=== PATIENT | female | born 1935 ===

== ENCOUNTER 2018-04-28 02:16 | Emergency (ER) | payer MEDICARE ==
[2018-04-28 02:17] VITALS: BMI 29.7
[2018-04-28 02:23] VITALS: O2SAT 98
[2018-04-28] MEDS ORDERED: Phenylephrine 1% Nasal Spray (15 ml) ONE (02:41)
--- NOTE | 2018-04-28 03:07 | C.PDOC ---
History Of Present Illness 82 year old female presents to the ED for evaluation after she sustained a fall prior to arrival. Patient states she fell and injured the right side of her head and subsequently developed a nose bleed. Patient denies LOC, nausea, vomiting. Chief Complaint (Nursing): ENT Problem History Per: Patient History/Exam Limitations: None Onset/Duration Of Symptoms: Hrs Current Symptoms Are (Timing): Still Present Past Medical History Reviewed: Historical Data, Nursing Documentation, Vital Signs Vital Signs: Last Vital Signs Temp 98.6 F 04/28/18 02:23 Pulse 95 H 04/28/18 02:23 Resp 20 04/28/18 02:23 BP 126/78 04/28/18 02:23 Pulse Ox 98 04/28/18 05:32 - Medical History PMH: Anemia, Arthritis (right leg), Bronchitis, CAD, CHF, COPD, Diabetes, Gastrointestinal Ulcer, HTN, Hypercholesterolemia, Hypothyroidism, Pneumonia Denies: Alzheimer's Disease, Anxiety, Asthma, Bipolar Disorder, Cardia Arrhythmia, Crohn's Disease, Dementia, Depression, Diverticulitis, Emphysema, Fibromyalgia, Fractures, Gall Bladder Disease, HIV, Hyperthyroidism, Kidney Stones, Migraine, Mitral Valve Prolapse, Osteoporosis, Pancreatitis, Paranoia, Parkinson's Disease, Peripheral Edema, Post Traumatic Stress Disorder, Chronic Kidney Disease, Schizophrenia, Seizures, Sickle Cell Disease, Sexually Transmitted Disease, Sleep Apnea, TIA Surgical History: Appendectomy, Coronary Stent Denies: Cholecystectomy, Pacemaker - [facility] Procedures ABD WALL GEOFF REPAIR NEC (04/07/15) ASSISTANCE WITH RESPIRATORY VENTILATION, 24-96 HRS, CPAP (08/19/15) BATHING/SHOWERING TECHNIQUES TREATMENT (08/24/15) CLOSED ENDOSCOPIC BIOPSY OF LARGE INTESTINE (03/31/00) COLONOSCOPY (03/29/15) CONTINUOUS INVASIVE MECHANICAL VENTILATION <96 CONSEC HRS (02/10/15) CORONAR ARTERIOGR-2 CATH (01/19/15) CORONARY ARTERY STENT INSERTION [id number] (01/19/15) DRAINAGE OF PERITONEAL CAVITY, PERCUTANEOUS APPROACH, DIAGN (04/09/18) DRAINAGE OF R PLEURAL CAV WITH DRAIN DEV, PERC APPROACH (08/19/15) ENDOSCOPIC CONTROL OF GASTRIC OR DUODENAL BLEEDING (01/30/15) FLUOROSCOPY OF LEFT HEART USING LOW OSMOLAR CONTRAST (03/29/18) FLUOROSCOPY OF MULT COR ART USING L OSM CONTRAST (03/29/18) GAIT TRAINING/FUNCTIONAL AMBULATION TREATMENT (08/24/15) INJECT/INFUSE NEC (06/28/14) INSERT ENDOTRACHEAL TUBE (02/10/15) INSERTION OF ONE VASCULAR STENT (01/19/15) INTRODUCE OF OTH THERAP SUBST INTO RESP TRACT, VIA OPENING (02/19/16) LEFT HEART CARDIAC CATH (01/19/15) LT HEART ANGIOCARDIOGRAM (01/19/15) MANUAL THERAPY TECHNIQUES TREATMENT OF MUSCULOSK WHOLE (08/24/15) MEASURE OF CARDIAC SAMPL & PRESSURE, L HEART, PERC APPROACH (03/29/18) NEBULIZER THERAPY (05/28/15) OCCUPATIONAL THERAPY (04/14/15) OPEN AND OTHER RIGHT HEMICOLECTOMY (04/07/15) OTH LYSIS-PERITONEAL ADHES (04/07/15) OTHER LOCAL DESTRUC SKIN (11/23/98) PACKED CELL TRANSFUSION (06/11/15) PERCUTAN NEEDLE BX OF LIVER (04/07/15) PERCUTANEOUS TRANSLUMINAL CORONARY ANGIOPLASTY [PTCA] (01/19/15) PHYSICAL THERAPY NEC (04/14/15) PROCEDURE ON SINGLE VESSEL (01/19/15) [id number] BOWEL NEC (04/07/15) THERAPEUTIC EXERCISE TREATMENT OF MUSCULOSK WHOLE (08/24/15) THERAPEUTIC PLATELETPHERESIS (02/19/15) TRANSFUSE NONAUT RED BLOOD CELLS IN PERIPH VEIN, PERC (03/29/18) VACCINATION NEC (01/30/15) Family History: States: Unknown Family Hx - Social History Hx Alcohol Use: No Hx Substance Use: No - Immunization History Hx Tetanus Toxoid Vaccination: No Hx Influenza Vaccination: Yes Hx Pneumococcal Vaccination: Yes Review Of Systems ENT: Positive for: Other (nose bleed ) Gastrointestinal: Negative for: Nausea, Vomiting Neurological: Negative for: Other (LOC ) Physical Exam - Physical Exam Appears: Non-toxic, No Acute Distress Skin: Normal Color, Warm, Dry Head: Other (hematoma to right occipital-parietal area ) Eye(s): bilateral: Normal Inspection, PERRL, EOMI Ear(s): Bilateral: Normal Nose: Other (bleeding from left nostril, rapid rhino inserted in left nostril ) Neck: Supple Chest: Symmetrical, No Deformity, No Tenderness Cardiovascular: Rhythm Regular Respiratory: Normal Breath Sounds Extremity: Normal ROM, Capillary Refill (less than 2 seconds ) Neurological/Psych: Oriented x3, Normal Speech, Normal Cognition ED Course And Treatment - Laboratory Results Result Diagrams: 04/28/18 03:41 04/28/18 03:41 O2 Sat by Pulse Oximetry: 98 (on RA) Pulse Ox Interpretation: Normal Progress Note: Bloodwork and CT Head ordered and reviewed. Disposition Counseled Patient/Family Regarding: Diagnosis - Disposition Referrals: Ronald Brandon MD [Staff Provider] - Disposition: OTHER INSTITUTION Disposition Time: 05:24 Condition: STABLE Additional Instructions: ff up with ENT- Instructions: Nosebleeds, Closed Head Injury (DC), Minor Head Injury (DC) Forms: [employer] (Hebrew) - POA Present On Arrival: None - Clinical Impression Clinical Impression: Nasal bleeding, Head injury, Hematoma of parietal scalp - Scribe Statement The provider has reviewed the documentation as recorded by the Scribe (Chrissy Cummins) Provider Attestation: All medical record entries made by the Scribe were at my direction and personally dictated by me. I have reviewed the chart and agree that the record accurately reflects my personal performance of the history, physical exam, medical decision making, and the department course for this patient. I have also personally directed, reviewed, and agree with the discharge instructions and disposition.
[2018-04-28 03:47] LABS: BASO # 0.2 K/uL (0.0-0.2); BASO % 1.5 % (0.0-2.0); EOS # 0.4 K/uL (0.0-0.7); EOS % 3.2 % (0.0-4.0); HEMOGLOBIN 12.6 g/dL (11.0-16.0); LYMPH % 26.2 % (20.0-40.0); MEAN CELL VOLUME 95.8 fL (81.0-99.0); MEAN CORPUSCULAR HEMOGLOBIN 32.2 pg (27.0-31.0); MEAN CORPUSCULAR HGB CONC 33.6 g/dL (33.0-37.0); MEAN PLATELET VOLUME 8.9 fL (7.2-11.7); MONO # 1.2 K/uL (0.0-0.8); MONO % 10.5 % (0.0-10.0); NEUT # 6.7 K/uL (1.8-7.0); NEUT % 58.6 % (50.0-75.0); RBC 3.9 Mil/uL (3.80-5.20); RED CELL DISTRIBUTION WIDTH 15.8 % (11.5-14.5); WHITE BLOOD COUNT 11.5 K/uL (4.8-10.8)
[2018-04-28 03:53] LABS: INR 1.2; PROTHROMBIN TIME 12.9 SECONDS (9.7-12.2)
[2018-04-28 03:57] LABS: CALCIUM 9.1 mg/dl (8.6-10.4)
[2018-04-28 04:02] LABS: ALB/GLOB RATIO 1.4 (1.0-2.1)
[2018-04-28 06:10] VITALS: BP 118/78; PULSE 80; RESP 14; TEMP 97.5
--- NOTE | 2018-04-28 15:45 | CT ---
Date of service: 04/28/2018 PROCEDURE: CT HEAD WITHOUT CONTRAST. HISTORY: hematoma on the right side of the head. bed 7 COMPARISON: None available. TECHNIQUE: Axial computed tomography images were obtained through the head/brain without intravenous contrast. Radiation dose: Total exam DLP = 795.47 mGy-cm. This CT exam was performed using one or more of the following dose reduction techniques: Automated exposure control, adjustment of the mA and/or kV according to patient size, and/or use of iterative reconstruction technique. FINDINGS: HEMORRHAGE: No intracranial hemorrhage. BRAIN: The juares-white matter differentiation is well preserved. There is no mass effect or definitive edema pattern appreciated including the cortex. There is proportional expansion of the ventriculosulcal and cisternal spaces however in a pattern most compatible with diffuse cerebral atrophy. No suspicious extra-axial fluid collection is identified in the midline brain anatomy appears grossly nonfocal as imaged. VENTRICLES: Unremarkable. No hydrocephalus. CALVARIUM: No destructive bony lesion or displaced fracture identified including through the skullbase. PARANASAL SINUSES: Unremarkable as visualized. No significant inflammatory changes. MASTOID AIR CELLS: Unremarkable as visualized. No inflammatory changes. OTHER FINDINGS: None. IMPRESSION: Age related neuro degenerative findings appear age-appropriate. No definite acute intracranial findings by standard CT criteria. No displaced fracture identified. Follow-up CT or MRI are available if clinically warranted. Concordant preliminary report from [facility], 04/28/2018.
== END 2018-04-28 06:10 | disposition designated cancer center or children's hospital (05) ==
LOC: C.ER 02:16
DX: S00.03XA Contusion of scalp, initial encounter (principal); W18.30XA Fall on same level, unspecified, initial encounter; Y92.013 Bedroom of single-family (private) house as the place of occurrence of the external cause; R04.0 Epistaxis; I25.10 Atherosclerotic heart disease of native coronary artery without angina pectoris; I11.0 Hypertensive heart disease with heart failure; I50.9 Heart failure, unspecified; Z95.5 Presence of coronary angioplasty implant and graft